=== PATIENT | male | born 1990 | race African-American/Black ===

== ENCOUNTER → 2018-08-31 | Outpatient (CLI) | payer OTHER ==
--- NOTE | 2018-08-31 17:36 | REP ---
CT LEFT SHOULDER WITHOUT CONTRAST: CT left shoulder was performed in the axial plane with sagittal and coronal reconstruction images. Correlation made with plain films from [place] 07/28/2018 as well as MRI 08/10/2018. 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 There is mild cortical irregularity on this portion of the humeral head. There are tiny subchondral cystic changes in the humeral head at that location as well. Otherwise the visualized osseous structures are intact. No osseous Bankart lesion is seen. Bony glenoid appears intact. Glenohumeral joint is well aligned. There is almost completely fused os acromion present. Acromioclavicular joint demonstrates normal alignment. There is some minimal subpleural scarring in the left upper lobe. IMPRESSION: Small Hill Sach's lesion superolateral humeral head as discussed above. Bony glenoid is intact. Electronically Signed by Anupam Subramanian MD 09/01/2018 03:23 P
== END ==
LOC: M RAD 16:08
DX: S42.202A Unspecified fracture of upper end of left humerus, initial encounter for closed fracture (principal); X58.XXXA Exposure to other specified factors, initial encounter; Y92.89 Other specified places as the place of occurrence of the external cause